=== PATIENT | female | born 1965 | race Hispanic/Latino ===

== ENCOUNTER 2021-05-29 13:44 | Outpatient (CLI) | payer OTHER, SELFPAY ==
--- NOTE | ~2021-05-29 | XR_ITS ---
XR ribs BI 3V w CXR 2V DATE: 05/29/2021 14:21 INDICATION: Pleurodynia TECHNIQUE: PA and lateral chest. 3 views of left rib. 3 views of right ribs. COMPARISON: 01/21/2015 2 view chest FINDINGS: There are patchy bilateral lower lobe infiltrates, left greater than right, not present on 01/21/2025. Findings suggest bilateral lower lobe pneumonia. No pleural effusion or pulmonary vascular congestion or pneumothorax. Normal heart size. No hilar or mediastinal enlargement. Surgical clips, right upper quadrant, consistent with cholecystectomy. No left or right rib fracture or bone destruction is detected. IMPRESSION: Patchy bilateral lower lung infiltrates suggesting bilateral lower lobe pneumonia, left g reater than right Reviewed, dictated and finalized at location A. IMPRESSION: Patchy bilateral lower lung infiltrates suggesting bilateral lower lobe pneumonia, left greater than right
== END 2021-05-29 13:45 ==
PROVIDERS: PCP Family Medicine; Visit Provider Physician Assistant
DX: R07.81 Pleurodynia (principal); U07.1 COVID-19; R91.8 Other nonspecific abnormal finding of lung field
CPT/HCPCS: 71046; 71110

== ENCOUNTER 2021-07-29 14:33 | Outpatient (CLI) | payer OTHER, SELFPAY ==
--- NOTE | ~2021-07-29 | MM_ITS ---
EXAMINATION: MM screening [facility] BI w nancy HISTORY: Screening mammogram TECHNIQUE: Craniocaudal and mediolateral oblique 3-D tomosynthesis images were obtained and synthetic 2-D images were generated. CAD analysis was submitted and interpreted. COMPARISON: 12/29/2016, 01/23/2015 BREAST PARENCHYMAL COMPOSITION: The breasts are heterogeneously dense, which may obscure small masses . FINDINGS: Stable asymmetries are again noted in the breasts. There is no evidence of suspicious mass, calcification, or architectural distortion to suggest malignancy in either breast. There has been no suspicious interval change. IMPRESSION: 1. No mammographic evidence of malignancy. 2. Recommend routine screening mammography in one year. BI-RADS Category 2: Benign finding(s). Reviewed, dictated and finalized at location A. WILLOW OPERATOR
== END 2021-07-29 14:34 | disposition home or self-care (01) ==
LOC: ANHIMG 14:36
PROVIDERS: PCP Family Medicine; Visit Provider Nurse Practitioner Obstetrics & Gynecology
DX: Z12.31 Encounter for screening mammogram for malignant neoplasm of breast (principal)
CPT/HCPCS: 77063; 77067

== ENCOUNTER 2025-01-08 09:25 | Outpatient (CLI) | payer BC, SELFPAY ==
--- NOTE | ~2025-01-08 | MM_ITS ---
EXAMINATION: MM screening abel BI w nancy HISTORY: Screening mammogram TECHNIQUE: Craniocaudal and mediolateral oblique 3-D tomosynthesis images were obtained and synthetic 2-D images were generated. CAD analysis was submitted and interpreted. COMPARISON: 07/29/2021, 12/29/2016 BREAST PARENCHYMAL COMPOSITION:Not Dense. There are scattered areas of fibroglandular density. FINDINGS: No suspicious mass, calcification, or architectural distortion are identified in either clara ast to suggest malignancy. There has been no suspicious interval change. IMPRESSION: No mammographic evidence of malignancy. Recommend routine screening mammography in one year. BI-RADS Category 1: Negative Reviewed, dictated and finalized at location .
--- OUTSIDE RECORDS SUMMARY | 2025-01-08 10:20 | XMS_ITS | Clinical Summary ---
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 Gender Identity Not on file Sexual Orientation Not on file Obstetrics History Last Filed Vital Signs Vital Sign Reading Time Taken Comments Blood Pressure 109/73 05/26/2023 2:52 PM CDT Pulse 72 05/26/2023 2:52 PM CDT Temperature 36.9 C (98.5 F) 05/26/2023 2:52 PM CDT Respiratory Rate 16 05/26/2023 2:52 PM CDT Oxygen Saturation 99% 05/26/2023 2:52 PM CDT Inhaled Oxygen Concentration - - Weight 59.5 kg (131 lb 1.6 oz) 05/26/2023 2:52 P M CDT Height 160 cm (5' 3 ) 05/26/2023 2:52 PM CDT Body Mass Index 23.22 05/26/2023 2:52 PM CDT Plan of Treatment Health Maintenance Due Date Last Done Comments Breast Cancer Screening-Mammogram 1967 Cervical Cancer Screening 1967 Colon Cancer Screening-Colonoscopy 1967 Depression Screening 1967 Hepatitis C Screening 1967 DTaP/Tdap/Td Vaccine (1 - Tdap) 1978 Hepatitis B Screening 1985 Regular Well Visit/Exam 18-64 1985 Zoster Vaccine (1 of 2) 2017 Influenza Vaccine (#1) 2024 Pneumococcal vaccine <65 Aged Out No longer eligible based on patient's age to complete this topic [facility] Care Teams Ceramic Sprayer Relationship Specialty Start Date End Date Romel Arthur MD [address] [place] [address] PCP - General 05/28/13
--- OUTSIDE RECORDS SUMMARY | 2025-01-08 10:20 | XMS_ITS | Referral Summary ---
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
--- OUTSIDE RECORDS SUMMARY | 2025-01-08 10:20 | XMS_ITS | Clinical Summary ---
Author Organization [facility] Address Formerly [facility] [place] [address] Care Team Providers Care Media Sales Consultant Name Role Phone Unavailable Primary Care Provider Unavailabl e Social History Tobacco Use Types Packs/Day Years Used Date Smoking Tobacco: Never Assessed Comments Unknown Sex and Gender Information Value Date Recorded Sex Assigned at Not on file Legal Sex Female 6:12 PM CDT Gender Identity Not on file Sexual Orientation Not on file Plan of Treatment Health Maintenance Due Date Last Done Comments Cervical Cancer Screening Pa p Smear (Age 30 to 64) Every 3 Years 1967 Colorectal Cancer Screening Colonoscopy (10 Years) 1967 Annual Physical 1970 Hepatitis C 1985 DTaP, Tdap and Td Vaccines ( 1 - Tdap) 1986 Hepatitis B Vaccines (1 of 3 - 19+ 3-dose series) 1986 Cervical Cancer Screening Pa p with HPV Testing (Age 30 to 64) Every 5 Years 1997 Cervical Cancer Screening with HPV 1997 Mammogram Screening 2007 Pneumococcal Vaccine: 50+ Ye ars (1 of 1 - PCV) 2017 Zoster Vaccines (1 of 2) 2017 COVID-19 Vaccine (2023-2 5 season) 2024 Meningococcal B Vaccine Aged Out No l onger eligible based on patient's age to complete this topic Meningococcal Vaccine Aged Out No kevin kristi eligible based on patient's age to complete this topic RSV Immunizations Under 20 Months Aged Out No longer eligible based on patient's age to complete this topic
--- OUTSIDE RECORDS SUMMARY | 2025-01-08 10:20 | XMS_ITS | Clinical Summary ---
Author Organization [facility] Address [address] [place] [address] Care Team Providers Care Freight Dispatcher Name Role Phone Unavailable Primary Care Provider Unavailabl e Source Comments [facility] [employer],non-owned Affiliates and Associated Physician Practices is amultiple site organization consisting of ambulatory clinics and hospital sitesin [place], [place], [place] and [place]. This disclosure is being madepursuant to the Care Everywhere program and may not contain all information available regarding this patient. 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 Gender Identity Not on file Sexual Orientation Not on file Plan of Treatment Health Maintenance Due Date Last Done Comments COLOGUARD (AGES 45-75) - COL ON CA SCREENING 1967 COLON MONITORING 1967 COLONOSCOPY - COLON CA SCREENING 1967 CT COLONOGRAPHY - COLON CA SCREENING 1967 Colorectal Cancer Screening 1967 FIT - COLON CA SCREENING 1967 FLEX SIG - COLON CA SCREENING 1967 LIPID TESTING 1967 MAMMOGRAM 1967 HIV SCREENING 1982 HEPATITIS C SCREENING 05/14/1985 DTAP/TDAP/TD VACCINES (1 - Tdap) 1986 HEPATITIS B VACCINE (1 of 3 - 19+ 3-dose series) 1986 PNEUMOCOCCAL VACCINE 50+ (1 of 1 - PCV) 2017 ZOSTER VACCINE (1 of 2) 2017 COVID-19 VACCINE ( - 2023-2 5 season) 2024 DEPRESSION SCREENING 09/12/2024 INFLUENZA VACCINE (Season Ended) 2025 HIB VACCINE Aged Out No longer eligi ble based on patient's age to complete this topic HPV VACCINE Aged Out No longer eligi ble based on patient's age to complete this topic MENINGOCOCCAL (Group B) VACC INE SHARED DECISION-MAKING Aged Out No longer eligibl e based on patient's age to complete this topic MENINGOCOCCAL GROUPS A/C/Y/W VACCINE Aged Out No longer eligible b ased on patient's age to complete this topic
--- OUTSIDE RECORDS SUMMARY | 2025-01-08 10:20 | XMS_ITS | Data Portability ---
Author Organization [facility] [place] Address [address] [place] [address] Assessment Encounter Date Assessment Date Assessment LastModified by Organization Details LastModified Time 12/01/2020 12/01/2020 Annual gynecological exam performed. Patient will come back in a year unless there are new symptoms. [email or web address] Not available 12/01/2020 10:50:55 Plan of Treatment Reminders Order Date Submit Date Provider Last Modified By Organization Details Last Modified Time Details Appointments None recorded. Lab None recorded. Referral None recorded. Procedures None recorded. Surgeries None recorded. Imaging None recorded. Medication Orders Proctosol HC 2.5 % topical cream perineal applicator 2020 021 [facility]acy #[id number], [address] [place], [address], 14:46:34 estradiol 0.5 mg tablet 2020 021 [email or web address] [email or web address] [facility]/Pharmacy #[id number], [address] [place], [address], 14:45:21 Prometrium 100 mg capsule 2020 021 [facility]Pharmacy #[id number], [address] [place], [address], 11:18:11 Patient TargetsNo targets recorded. Patient InstructionsNo instructions recorded. Reason for Referral None Reported. Results Created Date Observation Date Name Description Value Unit Range Abnormal Flag Note LastModifiedBy Organization Detail LastModifiedTime 03/19/20 20 03/20/2020 beta- HCG, quali tativ e, serum or plasm a beta-HCG qualitative serum Negati ve negati ve Not Available [facility] ([facility]) [address] Evelyn, [place], [address], 03/20/2020 06:25:25 12/02/19 21 12/01/2020 HPV E6+E7 mRNA, quali tativ e PCR, cervi x HPV MRNA E6/E7 only, vial (cdh/dch/kh/ vwh) CANCEL LED Yamel murillo Not Available [facility] (Lab) [address], [place], [address], 12/03/2020 13:14:49 12/02/19 21 12/01/2020 pap, IG Pap test SEE RESULT S BELOW CASE REPOR T: Cytol ogy Gynec ologi ирина Repor t Case: [id number] Autho eugenio anton Provi chintan: Davis Mcmahon Colle cted: 12/01 1143 [employer] Order ing Locat ion: [place] Path[facility] log[facility] Recei brian: 12/02 1343 First Scree n: Farhan lawrence, [place] , [place] Rescr een: Jacquie Diaz , [place] Speci men: Scree preeti Pap - Image d, Cervi x STATE MENT OF ADEQU ACY: UNSAT ISFAC TORY SPECI MEN FINAL DIAGN OSIS: Unsat isfac tory for evalu ation Inade quate squam ous epith elial compo nent for diagn osis Elect rocío doherty scotty d by Jacquie Diaz , [place] on 2020 at 5:09 PM ----- ----- ----- ----- ----- ----- ----- ----- ----- ----- ----- ----- ----- ----- ----- ----- ----- ---- HPV RESUL TS: HPV mRNA E6/E7 : No HPV mRNA Detec lillian NOTE: This high risk HPV mRNA assay detec ts fourt een high- risk HPV types (16, 18, 31, 33, 35, 39, 45, 51, 52, 56, 58, 59, 66, 68) witho ut diffe renti ation . CHART ABLE COMME NT: Note: This speci men was revie wed by a Cytot echno logis t and/o r Patho logis t (as indic ated in this repor t) after evalu ation using the Thinp rep Imagi ng Syste m. CLINI ИРИНА INFOR MATIO N: Menst rual Statu s: LMP (if appli cable ): Clini ирина Histo ry/Pr eviou s Pap: Type of Neopl roxi (if appli cable ): Other Histo ry: Hormo edwardo (if appli cable ): Not Available [facility] (Lab) [address], [place], [address], 12/03/2020 18:11:44 08/04/20 21 MAMMO , scree preeti, bilat eral No observ ation record ed. layran Not Available 2020 17:46:50 Result Notes None recorded. Problems Name Problem SNOMED Code Status Onset Date Resolution Date Notes Provider Name and Address Organization Details Recorded Time Cyst of ovary 17249785 Completed 201304/23/2021 OVARIAN CYST;Pra ctice ID: 0001 Merly may, [facility] 12:14:01 Speciali zed medical examinat ion Completed 201304/23/2021 Routine gynecolo gical examinat ion;Prac tiffanie ID: 0001 Merly may, [facility] 12:14:21 Screenin g for malignan t neoplasm of cervix Completed 201304/23/2021 Pap Smear;Pr actice ID: 0001 Merly may, [facility] 12:14:17 Menopaus al symptom [id number] Completed 201304/23/2021 Menopaus al or female climacte radha states;Kathrine sweet ID: 0001 Merly may, [facility] 12:14:11 Pregnanc y test negative [id number] Completed 201304/23/2021 Negative Pregnanc y Test;Pra ctice ID: 0001 Merly may, [facility] 12:14:15 Menstrua tion finding Completed 201304/23/2021 Menorrha tonia Excessiv e Menstrua tion;Pra ctice ID: 0001 Merly Vega lalo, [facility] 12:14:12 Insertio n of intraute rine contrace ptive device Completed 201404/23/2021 INSERTIO N OF IUD;Prac tiffanie ID: 0001 Merly Vega lalo, [facility] 12:14:07 Uses IUD (intraut erine device) contrace ption [id number] Completed 201404/23/2021 Surveill ance of intraute rine contrace ptive device;P ractice ID: 0001 Merly Vega lalo, [facility] 12:14:09 Evaluati on finding Completed 201904/23/2021 Hematuri a, unspecif ied;Prac tiffanie ID: 0001 Merly Vega lalo, [facility] 12:14:[address] Concept Completed 201904/23/2021 Encntr for senior investment manager exam (general ) (routine ) w/o abn findings ;Practic e ID: 0001 Merly Melaratz lalo, [facility] 12:14:19 Problem Notes None recorded. Procedures Surgical History Date Name Laterality Status Provider Name and Address Organization Details Recorded Time Date of Last Pap Smear completed Promise Haddad [facility] 01/03/2022 22:08:18 020 IUD Removal completed Analia De La Rosa, [facility] [address], [place], [address], [facility] 03/20/2020 12:28:23 015 Date of Last Mammogram completed Merly Vega [facility] 04/23/2021 12:17:02 removal of sebaceous cyst completed Promise Haddad [facility] 01/03/2022 22:10:15 cholecystectomy completed Kim Guardado [facility] 03/20/2020 10:37:43 Imaging Results Imaging Date Name Status LastModified by Organiz ation Details LastModified Time 08/04/2021 MAMMO, screening, bilateral completed layran Information not available 08/11/2021 17:46:50 Procedure Notes None recorded. Medical Equipment None Reported. Allergies No known drug allergies Medications Name Sig Start Date Stop Date Status Note LastModified by Organization Details LastModified Time amoxicill in 500 mg capsule 03/20 completed Not Available Not Available Not Available Mirena 21 mcg/24 hr (up to 8 years) 52 mg intrauter ine device Take by intraute rine route. 12/01 completed Not Available Not Available Not Available azithromy raymon 250 mg tablet TAKE 2 TABLETS BY MOUTH TODAY, THEN TAKE 1 TABLET DAILY FOR 4 DAYS active Not Available Not Available No t Available metronida zole 500 mg tablet TAKE 1 TABLET BY MOUTH EVERY 12 HOURS FOR 7 DAYS active Not Available Not Available No t Available hydrocort isone 2.5 % topical cream with perineal applicato r APLY THIN LAYER TO AFFECTED AREA 2 TO 4 TIMES DAILY NEEDED active Not Available Not Available No t Available estradiol 0.5 mg tablet TAKE 1 TABLET BY MOUTH EVERY DAY 2020 active Not Available Not Available Not Avai lable progester one micronize d 100 mg capsule TAKE 1 CAPSULE BY MOUTH EVERY DAY 2020 active Not Available Not Available Not Avai lable nitrofura ntoin monohydra te/macroc rystals 100 mg capsule TAKE 1 CAPSULE BY MOUTH EVERY 12 HOURS FOR 5 DAYS MUST ADMINIST ER WITH A MEAL/GOKUL D active Not Available Not Available No t Available Slow Release Iron 142 mg (45 mg iron) tablet,ex tended release take 1 by Oral route once for 30 days 10/19 completed Prescrib gallo Herrera e: No Locat ion: [facility] M odify By: [email or web address] Encount er DateTime : 09/20/19 15 01:10:02 PM Not Available Not Available Not Available Vitals Date Recorded Body height Body mass index (BMI) Body weight Systolic blood pressure Diastolic blood pressure Provider Name and Address Organization Details Last Updated DateTime 12/01/2020 160.02 cm 23.2 kg/m2 89601.6 g 116 mm[Hg] 75 mm[Hg] [facility] 1 10:58:44 Date Recorded Body height Body mass index (BMI) Body weight Systolic blood pressure Diastolic blood pressure Provider Name and Address Organization Details Last Updated DateTime 03/20/2020 1920.24 cm 0.2 kg/m2 37948.82 g 114 mm[Hg] 71 mm[Hg] Kim [facility] 0 12:07:17 Social History None recorded. Functional Status None recorded. Mental Status None recorded. Family History Relationship Description Onset Age of this Age Resolved Age Notes LastModified by Organization Details LastModified Time Mother Diabetes mellitus [email or web address] Not available 2019 10:36:11 Mother Hypertensive disorder [email or web address] Not available 2019 10:36:53 Brother Diabetes mellitus [email or web address] Not available 2019 10:36:11 Brother Hypertensive disorder [email or web address] Not available 2019 10:36:53 Brother Carcinoma in situ of kidney [email or web address] Not available 2019 10:37:09 Maternal Grandmother Diabetes mellitus [email or web address] Not available 2019 10:36:11 Maternal Grandmother Hypertensive disorder [email or web address] Not available 2019 10:36:53 Maternal Uncle Hypertensive disorder [email or web address] Not available 2019 10:36:53 Paternal Aunt Hypertensive disorder [email or web address] Not available 2019 10:36:53 Sister Carcinoma in situ of lung [email or web address] Not available 05/2020 10:37:17 Sister Cyst of ovary [email or web address] Not available 2019 10:37:28 Medical History Condition Response Allergies (Food, seasonal, environmental ) N Other Y Blood Transfusion N Drug/Latex Allergies/Reactions N Breast Cancer N Dermatologic Disorders N Lung Disease N Defects or Inherited Disease N Breast Problem N Gestational Diabetes N Hematologic disorders N Anesthesia Complications N History of STI N Deep Vein Thrombosis N Polycystic ovary syndrome N Anxiety Disorder N Autoimmune disease N Arthritis N Infertility N Polyps N Acid Reflux (GERD) N History of abnormal pap N Cancer N Stroke N Varicosities N Neurologic/Epilepsy N Endometriosis N High Cholesterol N Headaches N Fibromyalgia N Kidney Disease N Heart Problems N Kidney or Bladder Problems N Thyroid Problems N GI Problems N Eating Disorder N Anemia N Art (IVF or FET) N Psychiatric Illness N Ovarian Cancer N Diabetes N Pulmonary (TB, Asthma) N Hepatitis/Liver Disease N No Past Medical History N Eczema N Urinary Tract Infection N Abuse/Domestic Violence N Asthma N Trauma/Violence N Depression/ depression N Heart Disease N Pre-Eclampsia N Hypertension N Osteoporosis N Thrombophilias N Gynecological History Statement/Question Response Date of Last Mammogram 01/23/2015 Sexually Active? Y STIs/STDs N Date of Last Pap Smear 12/01/2020 Sexual Problems? N Current Control Method IUD Desired Control Method None Obstetrics History GPAL:G 4 P 3 0 1 3 Type Value Full Term 3 Spontaneous 1 Living 3 Total 4 Past Encounters Encounter ID Performer Location Encounter Start Date Encounter Closed Date Diagnosis/Indication Diagnosis SNOMED-CT Code Diagnosis ICD10 Code Diagnosis Note [id number] Analia De La Rosa [facility] [address] [address] 12/01/2020 10:48:09 12/01/2020 14:57:44 Gynecologic examination [id number] Z01.419 Take Calcium with Vitamin D 12-1500mg daily. Do monthly self breast exams. It is advised to get annual flu shot in the fall and she could obtain at [facility] or [facility] care clinic. If you haven't received the Tdap vaccine in the last 10 years you should obtain one as well. Have mammogram yearly, bone density every 2-3 years and colonoscop y every 5-10 years depending on findings and history. Engage in daily exercise of low impact aerobic exercise 45-60 minutes 4-5 times weekly. Avoid tobacco and illicit drugs as well as using moderation with alcohol intake less than 1-2 8 oz beverages daily. This lifestyle behavior pattern will lead to less health conditions and longer life span. If BMI greater than 25 weight watchers or dietary consult advised. Questions have been answered. Patient appears to understand instructio ns, but if you have any further questions call or respond to this email colon- Dexa- mammo-orde red Menopausal symptom 61317 002 N95.1 We discussed Menopausal Hormone therapy (MHT) for women with intact uterus with the goals of reliving vaso-motor sx's using estrogen/p rogestin therapy (EPT) using lowest doses for shortest duration in women 40-59yo. Contraindi cations include: Hx of DVT or thrombolic events, High cholestero l, Hx of breast cancer, known CHD, active liver disease, unexplaine d vag bleeding, high risk endometria l cancer, TIA. Side effects can include but are not limited to: Irregular vag bleeding,, breast tenderness , nausea, weight changes, libido changes, nausea. Adverse Rxn: Elevated BP migraine w/ visual changes, breast cancer dx, UT/stroke, DVT/PE, Endometria l cancer. Please contact office with any new or worsening side effects or adverse reactions. Or if a medical emergency please go to nearest ED/[facility] care for further evaluation . External hemorrhoids [phone] K64.4 PRN use. Go see GI surgeon if bothersome . [id number] Analia De La Rosa , [facility] [address] [address] 03/20/2020 11:53:01 03/20/2020 14:50:27 Removal of intrauterine device [id number] Z30.432 She states the symptoms are of new onset. Patient is here due to the approachin g due date or the nature of her IUD and wishes to have it removed. . She expressed understand ing. It was explained that she may have bleeding or spotting after the removal of the device today as well. If cannot see the strings of this device we will need to get an US image to make that the device is still in place and not in an unobtainab le position. She expressed understand ing of all the above instructio ns. She is in menopause according to FSH/LH levels done in November 2019. Would not expect her to have a menses. Needs to call with any AUB that is past 24-72hrs after pulling IUD. Will call if interested in HRT. Health Concerns Section Related Observation LastModified by Organization Detai ls LastModified Time None Recorded Concern Status LastModified by Organization Details LastModified Time None Recorded Advance Directives Directive None Recorded Payers Encounter Date Sequence Insurance Name Policy Number Policy [place] Covered Member ID [place] Member ID Guarantor Name 03/20/2020 1 [facility] [id number] Carlos Manuel Murguia [id number] Ashleigh Murguia 12/01/2020 1 [facility] [id number] Carlos Manuel Murguia [id number] Ashleigh Murguia Notes Date Note Type Note Provider Name and Address Organization Details Recorded Time 03/20/2020 text/html Patient presents for IUD Removal. KIARRA Ornelas- [address], [place], [address], [facility] 03/20/2020 12:30:11 12/01/2020 text/html Annual Medical Technologist Generalist Post-MenopausalRe ported bypatient.Menopau kirstin Symptoms:normal vaginal lubrication;hot flashes;insomnia due to night sweats Vaginal Bleeding:history of menopause having occurred; no history of post menopausal bleeding Urinary Symptoms:no hematuria; no incontinence; no nocturia; no urinary frequency Vulva:no genital lesion; no vulvar atrophy Vagina:normal vaginal discharge; no vaginal atrophy Breast:no breast lump; no nipple discharge; no breast pain Sexual Complaints:no sexual complaints Psychological Symptoms:no depression; no anxiety Preventive Measures:encourag e regular mammograms starting age 40; encourage self breast examination; encourage regular exercise; encourage no tobacco use; mammogram performed within the past year; needs to schedule mammogram; needs to schedule colonoscopy Analia De La Rosa ANTONINO [address], [place], [address], [facility] 12/01/2020 14:48:05 OBGyn Episode Ob Episode Information Episode Created Date Number of Fetuses Patient Bloodtype Patient rh Status Prepregnancy Weight lbs Domestic Partner Domestic Partner Phone Father Name Corporate Tax Manager Status 03/20/20 20 1 CLOSED Fetus Data First Name Last Name Admitted to NICU Weight (g) Sex Living Outcome Pediatric Complications Fetus ID Race Codes Race Delivery Type , Spontane ous 2804 Gordy Calculation Initial Gordy Date Initial Exam Date Initial Exam Provider Initial Ultrasound Date Last Menstrual Period Date Ultra Sound Weeks Gestation 0 Eighteen To Twenty Week Gordy Update Ultra Sound Date Fundal Height At Umbil Quickening Date Ultra Sound Latest Weeks Gestation Final Gordy Confirmed By Final Gordy Confirmed Date Final Gordy Date Ultra Sound Latest Days Gestation 0 0 Menstrual History Last Menstrual Date Menses Monthly On Bcp Conception Prior Menses Frequency Hcg Plus Date Menarche Onset Age Delivery Information Delivery Date Delivery Type Labor Anesthesia Weeks Gestation Incision Type Labor Labor Length Hrs Delivered By Post Complications Tubal Sterilization Discharge Date Comments 0 Discharge Information Feeding Method Contraceptive Method Maternal HG B and HCT Levels Ob Episode Information Episode Created Date Number of Fetuses Patient Bloodtype Patient rh Status Prepregnancy Weight lbs Domestic Partner Domestic Partner Phone Father Name Corporate Tax Manager Status 03/20/20 20 1 CLOSED Fetus Data First Name Last Name Admitted to NICU Weight (g) Sex Living Outcome Pediatric Complications Fetus ID Race Codes Race Delivery Type 3175.14 4 F Full Term 2803 Vaginal Delivery Gordy Calculation Initial Gordy Date Initial Exam Date Initial Exam Provider Initial Ultrasound Date Last Menstrual Period Date Ultra Sound Weeks Gestation 0 Eighteen To Twenty Week Gordy Update Ultra Sound Date Fundal Height At Umbil Quickening Date Ultra Sound Latest Weeks Gestation Final Gordy Confirmed By Final Gordy Confirmed Date Final Gordy Date Ultra Sound Latest Days Gestation 0 0 Menstrual History Last Menstrual Date Menses Monthly On Bcp Conception Prior Menses Frequency Hcg Plus Date Menarche Onset Age Delivery Information Delivery Date Delivery Type Labor Anesthesia Weeks Gestation Incision Type Labor Labor Length Hrs Delivered By Post Complications Tubal Sterilization Discharge Date Comments 9 Discharge Information Feeding Method Contraceptive Method Maternal HG B and HCT Levels Ob Episode Information Episode Created Date Number of Fetuses Patient Bloodtype Patient rh Status Prepregnancy Weight lbs Domestic Partner Domestic Partner Phone Father Name Corporate Tax Manager Status 03/20/20 20 1 CLOSED Fetus Data First Name Last Name Admitted to NICU Weight (g) Sex Living Outcome Pediatric Complications Fetus ID Race Codes Race Delivery Type 2721.55 2 M Full Term 2801 Vaginal Delivery Gordy Calculation Initial Gordy Date Initial Exam Date Initial Exam Provider Initial Ultrasound Date Last Menstrual Period Date Ultra Sound Weeks Gestation 0 Eighteen To Twenty Week Gordy Update Ultra Sound Date Fundal Height At Umbil Quickening Date Ultra Sound Latest Weeks Gestation Final Gordy Confirmed By Final Gordy Confirmed Date Final Gordy Date Ultra Sound Latest Days Gestation 0 0 Menstrual History Last Menstrual Date Menses Monthly On Bcp Conception Prior Menses Frequency Hcg Plus Date Menarche Onset Age Delivery Information Delivery Date Delivery Type Labor Anesthesia Weeks Gestation Incision Type Labor Labor Length Hrs Delivered By Post Complications Tubal Sterilization Discharge Date Comments 6 Discharge Information Feeding Method Contraceptive Method Maternal HG B and HCT Levels Ob Episode Information Episode Created Date Number of Fetuses Patient Bloodtype Patient rh Status Prepregnancy Weight lbs Domestic Partner Domestic Partner Phone Father Name Corporate Tax Manager Status 03/20/20 20 1 CLOSED Fetus Data First Name Last Name Admitted to NICU Weight (g) Sex Living Outcome Pediatric Complications Fetus ID Race Codes Race Delivery Type 3628.73 6 M Full Term 2802 Vaginal Delivery Gordy Calculation Initial Gordy Date Initial Exam Date Initial Exam Provider Initial Ultrasound Date Last Menstrual Period Date Ultra Sound Weeks Gestation 0 Eighteen To Twenty Week Gordy Update Ultra Sound Date Fundal Height At Umbil Quickening Date Ultra Sound Latest Weeks Gestation Final Gordy Confirmed By Final Gordy Confirmed Date Final Gordy Date Ultra Sound Latest Days Gestation 0 0 Menstrual History Last Menstrual Date Menses Monthly On Bcp Conception Prior Menses Frequency Hcg Plus Date Menarche Onset Age Delivery Information Delivery Date Delivery Type Labor Anesthesia Weeks Gestation Incision Type Labor Labor Length Hrs Delivered By Post Complications Tubal Sterilization Discharge Date Comments 6 Discharge Information Feeding Method Contraceptive Method Maternal HG B and HCT Levels
== END 2025-01-08 09:26 | disposition home or self-care (01) ==
PROVIDERS: PCP Family Medicine; Visit Provider Student in an Organized Health Care Education/Training Program
DX: Z12.31 Encounter for screening mammogram for malignant neoplasm of breast (principal)
CPT/HCPCS: 77063; 77067